=== PATIENT | female | born 1990 | race Caucasian/White ===

== ENCOUNTER 2017-03-24 15:57 | Emergency (ER) | payer MEDICAID, OTHER | END 2017-03-24 16:10 | disposition left against medical advice (07) | LOC: ER 16:03 | DX: O26.899 Other specified pregnancy related conditions, unspecified trimester (principal); R25.2 Cramp and spasm; Z3A.00 Weeks of gestation of pregnancy not specified; Z53.21 Procedure and treatment not carried out due to patient leaving prior to being seen by health care provider ==